=== PATIENT | male | born 1965 | race Caucasian/White ===

== ENCOUNTER 2017-04-24 11:14 | Emergency (ER) | payer OTHER ==
[2017-04-24 11:21] VITALS: TEMP 98.2
--- NOTE | 2017-04-24 11:34 | EDPHY ---
H & P Time Seen by Provider: 04/24/17 11:33 HPI/ROS: Chief complaint. Calf swelling HPI. 51-year-old male presents with left calf swelling for 2 days. He relates that back in November he was doing 1 leg at squats and seemed injure his left knee and calf. However he has not had any swelling until 2 days ago. He has had recent travel to [place]. Denies recent injury. Maybe has some medial thigh discomfort. Denies chest discomfort or shortness of breath. No history of DVT ROS Constitutional. no fever/chills, no weakness Eyes. no problems with vision ENT. no sore throat, no nasal drainage Cardiovascular. no chest pain Respiratory. no shortness of breath, no cough Abdominal. no abdominal pain, no nausea/vomiting, no diarrhea . no problems urinating MS. left calf swelling and some pain Skin. no rash Lymph. no swollen glands Neuro. no headache, no dizziness, no difficulty walking or with speech Past Medical/Surgical History: Hypothyroid, esophageal dilatation Social History: , nonsmoker, no alcohol Smoking Status: Never smoked Physical Exam: General Appearance: Alert well-developed male mild distress vital signs stable Eyes: Pupils equal and round no pallor or injection. ENT, Mouth: Mucous membranes are moist. Respiratory: There are no retractions, lungs are clear to auscultation. Cardiovascular: Regular rate and rhythm. Gastrointestinal: Abdomen is soft and nontender, no masses, bowel sounds normal. Neurological: Awake and alert, sensory and motor exams grossly normal. Skin: Warm and dry, no rashes. Musculoskeletal: Neck is supple nontender. Extremities left lower extremity is mildly swollen below the left knee. No knee tenderness. No findings above the knee. Dorsalis pedis and posterior tibial pulses are full and symmetrical Psychiatric: Patient is oriented X 3, there is no agitation. Constitutional: Initial Vital Signs Temperature (C) 36.8 C 04/24/17 11:18 Heart Rate 84 04/24/17 11:18 Respiratory Rate 18 04/24/17 11:18 Blood Pressure 147/92 H 04/24/17 11:18 O2 Sat (%) 96 04/24/17 11:18 O2 Delivery Mode Room Air Allergies/Adverse Reactions: No Known Allergies Allergy (Unverified 04/24/17 11:21) Home Medications: Medication Instructions Recorded Synthroid 09/03/17 Medical Decision Making - Diagnostics Imaging Results: Imaging Impressions Extremity Venous Study 04/24/17 11:47 Impression: No evidence of deep vein thrombosis in the left lower extremity. A message was left for Dr. Gibbons at 1:12 PM. Ultrasound reviewed by me and discussed with Dr. Valadez shows no evidence for DVT ED Course/Re-evaluation: Re-evaluation 1:20 p.m.. The patient and I discussed imaging study results, treatment plan including criteria for return importance of follow-up and further evaluation. He expresses understanding and agreement Differential Diagnosis: I considered DVT which the patient does not have. I suspect that this is inflammation from his knee injury. No evidence for arterial obstruction Departure - Departure Disposition: Home, Routine, Self-Care Clinical Impression: Left calf swelling Condition: Good Instructions: Leg Edema (ED) Additional Instructions: Easy activity the next 1-2 days. Keep leg elevated as much as possible next 24- 48 hours. Ibuprofen 600 mg every 6 hours for inflammation. Ice to your knee. Follow up with your regular physician in the next 2-3 days without fail for further evaluation Referrals: Malena Olivas MD [Primary Care Provider] - 2-3 days, call for appt.
[2017-04-24 13:43] VITALS: BP 136/82; PULSE 78; RESP 16; O2SAT 97
== END 2017-04-24 13:41 | disposition home or self-care (01) ==
LOC: CED 11:14
DX: M79.89 Other specified soft tissue disorders (principal)
CPT/HCPCS: 93971-PO